=== PATIENT | female | born 1985 | race Caucasian/White ===

== ENCOUNTER → 2021-06-13 | Day surgery (SDC) | payer OTHER ==
[~2021-06-13] MED LIST: COLACE 100MG C100 MG PO; HYDROCODON-ACE1 EAC6 PO; IBUPROFEN600 MG PO; IBUPROFEN800 MG PO; JANUVIA100 MG PO; MULTIVITAMINS1 EAC2 PO; TYLENOL 8 HOUR650 MG PO
[2021-06-13 11:40] LABS: HEMOGLOBIN 11.8 gm/dl (12.3-15.3); RED BLOOD COUNT 3.84 M/UL (4.00-5.10); WHITE BLOOD COUNT 11.2 K/UL (4.5-11.0)
== END | disposition home or self-care (01) ==
LOC: OR 10:26
PROVIDERS: Obstetrics & Gynecology
DX: O03.1 Delayed or excessive hemorrhage following incomplete spontaneous abortion (principal); E11.9 Type 2 diabetes mellitus without complications; Z72.0 Tobacco use; Z20.822 Contact with and (suspected) exposure to COVID-19
CPT/HCPCS: 36415; 82962; 85025; J1100; J1885; J2001; J2250; J2405; J2704; J2795; J3010; J7030; J7120; U0002